=== PATIENT | female | born 1970 | race Caucasian/White ===

== ENCOUNTER 2017-12-20 09:09 | Outpatient (CLI) | payer OTHER | END 2017-12-20 09:10 | disposition home or self-care (01) | LOC: BICMAMMO 09:09 | PROVIDERS: ATTEND Student in an Organized Health Care Education/Training Program | DX: N64.4 Mastodynia (principal); R22.30 Localized swelling, mass and lump, unspecified upper limb | CPT/HCPCS: 77066; G0279 ==

== ENCOUNTER 2018-07-20 12:19 | Outpatient (CLI) | payer OTHER ==
--- NOTE | 2018-07-20 14:29 | ULT ---
THYROID ULTRASOUND: 07/20/2018 HISTORY: Left thyroid mass. COMPARISON: None available. TECHNIQUE: Multiplanar ward-scale sonographic imaging of the thyroid gland obtained. FINDINGS: The thyroid isthmus measures 3 mm in AP dimension. The right lobe measures 4.9 x 1.9 x 1.8 cm, and the left lobe measures 5.8 x 1.7 x 1.6 cm. A heterogeneously hypoechoic solid nodule is noted within the posterior aspect of the mid right lobe. This nodule measures approximately 1 x 1 x 1 cm. It demonstrates no internal calcification. Its m argins are slightly ill defined and mildly lobulated. There is a homogeneous, hypoechoic, solid nodu le within the superior aspect of the right lobe, measuring 7 x 6 x 3 mm. There is a solid, homogeneous, isoechoic nodule in the mid portion of the left lobe, anteriorly, lou uring 5 x 4 x 4 mm. There is a dominant solid and cystic nodule emanating from the inferior aspect of the left lobe, lou uring approximately 3.2 x 1.8 x 2.7 cm. IMPRESSION: Dominant, primarily solid nodule within the lower aspect of the left lobe. This is a TR4 lesion and, given size, fine needle aspiration is advised. The additional thyroid nodules mentioned above shoul d be further assessed with follow-up ultrasound in six months. CODE T POS: KEYANA
== END 2018-07-20 12:20 | disposition home or self-care (01) ==
LOC: BICULT 12:19
DX: E07.9 Disorder of thyroid, unspecified (principal); E04.2 Nontoxic multinodular goiter
CPT/HCPCS: 76536

== ENCOUNTER 2022-01-14 14:41 | Outpatient (CLI) | payer BC | END 2022-01-14 14:42 | disposition home or self-care (01) | LOC: BICULT 14:41 | PROVIDERS: ATTEND Family Medicine | DX: E04.2 Nontoxic multinodular goiter (principal) | CPT/HCPCS: 76536 ==